=== PATIENT | female | born 1960 | race Caucasian/White ===

== ENCOUNTER → 2021-03-20 | Outpatient (CLI) | payer OTHER ==
[~2021-03-20] MED LIST: ASPIR 8181 MG PO; CLARITIN10 MG PO; MEDROL DOSEPAK 24 MG PO; OMNICEF 300 MG300 MG PO; PROTONIX40 MG PO; PROZAC20 MG PO
== END ==
LOC: KOH-I 13:14
DX: R05.3 Chronic cough (principal)
CPT/HCPCS: 71046

== ENCOUNTER → 2021-05-08 | Outpatient (CLI) | payer OTHER | LOC: KOH-I 12:53 | DX: R05.3 Chronic cough (principal) | CPT/HCPCS: 71250 ==

== ENCOUNTER → 2021-05-16 | Outpatient (CLI) | payer OTHER | LOC: ECHO 09:45 | DX: R06.00 Dyspnea, unspecified (principal) | CPT/HCPCS: ECHO; 93306 ==